=== PATIENT | female | born 1930 | race American Indian/Alaskan Native ===

== ENCOUNTER 2021-04-12 13:33 | Emergency (ER) | payer MEDICARE ==
[2021-04-12] MEDS ORDERED: methylPREDNISolone Sod Succinate 125 MG/2 ML INJ IV ONE (14:29)
[2021-04-12] MEDS ORDERED: FAMOTIDINE 20 MG/2 ML INJ IV ONE (14:29)
[2021-04-12] MEDS ORDERED: diphenhydrAMINE 50 MG/ML VIAL IV ONE (14:29)
[2021-04-12] MEDS ORDERED: SODIUM CHLORIDE 0.9% 1000 ML IV SOLN IV ONE (14:37)
--- NOTE | 2021-04-12 15:21 | XRay Report ---
CHEST 1 VIEW 04/12/2021 2:41 PM INDICATION / CLINICAL INFORMATION: hypotension, hypoxia. COMPARISON: None available. FINDINGS: SUPPORT DEVICES: None. HEART / MEDIASTINUM: Atherosclerotic calcifications are noted in the aortic arch. There is prominence of the right hilum. LUNGS / PLEURA: There are bilateral pulmonary opacities. There is diffuse brain all opacity in the ri ght lung some focal peripheral opacity in the left upper lung zone in the left lung base. No pneumoth orax. There is a 4 mm nodular density in the left lung base. ADDITIONAL FINDINGS: No significant additional findings. IMPRESSION: 1. There are bilateral pulmonary opacities which could represent pneumonia or asymmetric edema. Short -term follow-up radiographs are recommended to ensure clearing. 2. There is some right hilar prominence could represent which could be vascular or represent some per ihilar airspace consolidation. The possibility of hilar adenopathy or right hilar mass is included in the differential. Short-term follow-up chest radiograph with PA and lateral imaging is recommended i n the next 1-2 weeks to evaluate for clearing. CT imaging can be obtained to further evaluate if this persists. Signer Name: Leonid Bosch MD Signed: 04/12/2021 3:17 PM Workstation Name: [id number]
[2021-04-12 15:22] LABS: Basophils % (Auto) 0.3 % (0.0-1.8); Hematocrit 47.2 % (30.3-42.9); Lymphocytes # (Auto) 0.8 K/mm3 (1.2-5.4); Lymphocytes % (Auto) 7.7 % (13.4-35.0); Mean Corpuscular HGB Conc 32 % (30-34); Mean Corpuscular Volume 97 fl (79-97); Monocytes # (Auto) 0.6 K/mm3 (0.0-0.8); Monocytes % (Auto) 5.4 % (0.0-7.3); Platelet Count 228 K/mm3 (140-440); Red Blood Count 4.89 M/mm3 (3.65-5.03); Red Cell Distribution Width 15.7 % (13.2-15.2)
--- NOTE | 2021-04-12 15:26 | Emergency Department Report ---
ED Shortness of Breath HPI - General Chief Complaint: Abdominal Pain Stated Complaint: ABD PAIN Time Seen by Provider: 04/12/21 14:19 Source: patient, family (son via telephone), EMS Mode of arrival: Stretcher Limitations: No Limitations - History of Present Illness Initial Comments: Please note history of present illness obtained mostly from patient's son with whom she resides. Patient is alert and oriented x3 but is weak, short of breath, slow to respond to questions 89-year-old female with a past medical history of CHF, hypothyroidism currently on Synthroid, hypertension who chronically takes Synthroid Plavix, eyedrops, and a water pill presents to the hospital with complaint worsening weakness. As per son he states that patient has had generalized weakness for the last several days with decreased p.o. intake. Today while using the bathroom she had a syncopal episode for approximately 30 to 45 seconds and responded after he put a cool rag on her face and neck. Patient's blood pressure was 77/59 at the time. he called the primary care doctor who told him to come to the office at 1:30 PM. Patient had just a small amount to eat and while attempting to get dressed for doctor's appointment had a second syncopal episode lasting for approximately 1 minute. Is at that time that son decided to call EMS. He states that patient was complaining of some abdominal pain earlier but patient denies down pain at this time. She does endorse shortness of breath. No complaints of cough, fever. She is vaccinated for Covid. At baseline patient ambulates with a walker. Previous history of cholecystectomy and possible spleen surgery as per son - Related Data Allergies Allergy/AdvReac Type Severity Reaction Status Date / Time aspirin AdvReac Unknown Verified 04/12/21 13:37 ED Review of Systems ROS: Stated complaint: ABD PAIN Other details as noted in HPI Comment: All other systems reviewed and negative ED Physical Exam - General Limitations: No Limitations - Other Other exam information: General: No acute distress Head: Atraumatic Eyes: normal appearance ENT: Moist mucous membranes Neck: Normal appearance, no midline tenderness Chest: Mild crackles, mild tachypnea satting 93% on 4 L nasal CV: Regular rate and rhythm Abdomen: Soft, normal bowel sounds, nontender, nondistended, no rebound or guarding Back: Normal inspection Extremity: Normal inspection, full range of motion Neuro: Alert O x 3, no facial asymmetry, speech clear, no gross motor sensory deficit Psych: Appropriate behavior Skin: No rash ED Course Vital Signs 04/12/21 04/12/21 04/12/21 13:37 15:26 16:43 Temperature 98 F 98.1 F Pulse Rate 88 78 73 Respiratory 18 18 94 H Rate Blood Pressure Blood Pressure 86/32 76/44 75/52 [Left] O2 Sat by Pulse 100 92 94 Oximetry 04/12/21 04/12/21 16:59 21:22 Temperature Pulse Rate 76 64 Respiratory Rate Blood Pressure 81/49 Blood Pressure 99/54 [Left] O2 Sat by Pulse 90 Oximetry - Reevaluation(s) Reevaluation #1: 04/12/21 20:03 pt is now confused. 04/12/21 20:09 son updated regarding pt status and need for Central line, permission granted to place central line. - Central Line Placement Right Femoral Consent Obtained: verbal consent (FROM SON), emergent situation Time Out Performed: Yes Patient Placed on Monitor/Pulse Ox: Yes MD Prep: mask, gown, gloves Central Line Prep: Chlorhexidine scrub, sterile drapes applied Ultrasound Used for Placement: No Central Line Lumen Inserted: triple Reason for Insertion: Volume Resuscitation Bloods Obtained for Lab: Yes Central Line Position: good blood return, sutured in place with nyl Dressing Applied: Tegaderm Patient Tolerated Procedure: well, no complications - Intubation Time Out Performed: Yes Sedative: Etomidate Mg Given: 20 Paralytic: Succinylcholine Mg Given: 100 Laryngoscope: fiberoptic video scope Size: 4 ET Tube Size: 7.5 Tube Secured Depth (cm): 22 Tube Secured Location: lips Tube Placement Confirmation: visualized tube passing t, equal breath sounds bilat, no breath sounds over epi, confirmation by capnometr Patient Tolerated Procedure: well, no complications Intubation Complications: none ED Medical Decision Making - Lab Data Result diagrams: 04/12/21 14:54 04/12/21 15:55 Lab Results 04/12/21 04/12/21 04/12/21 Range/Units 14:54 14:54 14:54 WBC 10.9 (4.5-11.0) K/mm3 RBC 4.89 (3.65-5.03) M/mm3 Hgb 15.0 H (10.1-14.3) gm/dl Hct 47.2 H (30.3-42.9) % MCV 97 (79-97) fl MCH 31 (28-32) pg MCHC 32 (30-34) % RDW 15.7 H (13.2-15.2) % Plt Count 228 (140-440) K/mm3 Lymph % (Auto) 7.7 L (13.4-35.0) % [place] % (Auto) 5.4 (0.0-7.3) % Eos % (Auto) 0.0 (0.0-4.3) % Baso % (Auto) 0.3 (0.0-1.8) % Lymph # (Auto) 0.8 L (1.2-5.4) K/mm3 [place] # (Auto) 0.6 (0.0-0.8) K/mm3 Eos # (Auto) 0.0 (0.0-0.4) K/mm3 Baso # (Auto) 0.0 (0.0-0.1) K/mm3 Seg Neutrophils % 86.6 H (40.0-70.0) % Seg Neutrophils # 9.4 H (1.8-7.7) K/mm3 PT (12.2-14.9) Sec. INR (0.87-1.13) APTT 29.0 (24.2-36.6) Sec. D-Dimer (0-234) ng/mlDDU Sodium 139 (137-145) mmol/L Potassium 4.3 (3.6-5.0) mmol/L Chloride 105.7 (98-107) mmol/L Carbon Dioxide 22 (22-30) mmol/L Anion Gap 16 mmol/L BUN 26 H (7-17) mg/dL Creatinine 1.9 H (0.6-1.2) mg/dL Estimated GFR 25 ml/min BUN/Creatinine Ratio 14 % Glucose 147 H (65-100) mg/dL POC Glucose (70-105) mg/dL Lactic Acid (0.7-2.0) mmol/L Calcium 8.2 L (8.4-10.2) mg/dL Ferritin (10.0-200.0) ng/mL Total Bilirubin 0.30 (0.1-1.2) mg/dL AST 169 H (5-40) units/L ALT 133 H (7-56) units/L Alkaline Phosphatase 96 (35-129) units/L Lactate Dehydrogenase (91-180) units/L Troponin T 0.052 H (0.00-0.029) ng/mL C-Reactive Protein (0.00-1.30) mg/dL NT-Pro-B Natriuret Pep (0-900) pg/mL Total Protein 6.0 L (6.3-8.2) g/dL Albumin 3.2 L (3.9-5) g/dL Albumin/Globulin Ratio 1.1 % Triglycerides 75 (2-149) mg/dL Cholesterol 132 (50-199) mg/dL LDL Cholesterol Direct 75 (50-130) mg/dL HDL Cholesterol 45 (40-59) mg/dL Cholesterol/HDL Ratio 2.93 % Procalcitonin (<0.15) ng/mL TSH (0.270-4.200) mlU/mL Free T4 (0.76-1.46) ng/dL 04/12/21 04/12/21 04/12/21 Range/Units 14:54 14:54 15:55 WBC (4.5-11.0) K/mm3 RBC (3.65-5.03) M/mm3 Hgb (10.1-14.3) gm/dl Hct (30.3-42.9) % MCV (79-97) fl MCH (28-32) pg MCHC (30-34) % RDW (13.2-15.2) % Plt Count (140-440) K/mm3 Lymph % (Auto) (13.4-35.0) % [place] % (Auto) (0.0-7.3) % Eos % (Auto) (0.0-4.3) % Baso % (Auto) (0.0-1.8) % Lymph # (Auto) (1.2-5.4) K/mm3 [place] # (Auto) (0.0-0.8) K/mm3 Eos # (Auto) (0.0-0.4) K/mm3 Baso # (Auto) (0.0-0.1) K/mm3 Seg Neutrophils % (40.0-70.0) % Seg Neutrophils # (1.8-7.7) K/mm3 PT 15.9 H (12.2-14.9) Sec. INR 1.15 H (0.87-1.13) APTT (24.2-36.6) Sec. D-Dimer 5872.10 H (0-234) ng/mlDDU Sodium (137-145) mmol/L Potassium (3.6-5.0) mmol/L Chloride (98-107) mmol/L Carbon Dioxide (22-30) mmol/L Anion Gap mmol/L BUN (7-17) mg/dL Creatinine (0.6-1.2) mg/dL Estimated GFR ml/min BUN/Creatinine Ratio % Glucose (65-100) mg/dL POC Glucose (70-105) mg/dL Lactic Acid 2.20 H* (0.7-2.0) mmol/L Calcium (8.4-10.2) mg/dL Ferritin (10.0-200.0) ng/mL Total Bilirubin (0.1-1.2) mg/dL AST (5-40) units/L ALT (7-56) units/L Alkaline Phosphatase (35-129) units/L Lactate Dehydrogenase (91-180) units/L Troponin T (0.00-0.029) ng/mL C-Reactive Protein (0.00-1.30) mg/dL NT-Pro-B Natriuret Pep 23187 H (0-900) pg/mL Total Protein (6.3-8.2) g/dL Albumin (3.9-5) g/dL Albumin/Globulin Ratio % Triglycerides (2-149) mg/dL Cholesterol (50-199) mg/dL LDL Cholesterol Direct (50-130) mg/dL HDL Cholesterol (40-59) mg/dL Cholesterol/HDL Ratio % Procalcitonin (<0.15) ng/mL TSH (0.270-4.200) mlU/mL Free T4 (0.76-1.46) ng/dL 04/12/21 04/12/21 04/12/21 Range/Units 15:55 15:55 15:55 WBC (4.5-11.0) K/mm3 RBC (3.65-5.03) M/mm3 Hgb (10.1-14.3) gm/dl Hct (30.3-42.9) % MCV (79-97) fl MCH (28-32) pg MCHC (30-34) % RDW (13.2-15.2) % Plt Count (140-440) K/mm3 Lymph % (Auto) (13.4-35.0) % [place] % (Auto) (0.0-7.3) % Eos % (Auto) (0.0-4.3) % Baso % (Auto) (0.0-1.8) % Lymph # (Auto) (1.2-5.4) K/mm3 [place] # (Auto) (0.0-0.8) K/mm3 Eos # (Auto) (0.0-0.4) K/mm3 Baso # (Auto) (0.0-0.1) K/mm3 Seg Neutrophils % (40.0-70.0) % Seg Neutrophils # (1.8-7.7) K/mm3 PT (12.2-14.9) Sec. INR (0.87-1.13) APTT (24.2-36.6) Sec. D-Dimer (0-234) ng/mlDDU Sodium (137-145) mmol/L Potassium (3.6-5.0) mmol/L Chloride (98-107) mmol/L Carbon Dioxide (22-30) mmol/L Anion Gap mmol/L BUN (7-17) mg/dL Creatinine (0.6-1.2) mg/dL Estimated GFR ml/min BUN/Creatinine Ratio % Glucose 140 H (65-100) mg/dL POC Glucose (70-105) mg/dL Lactic Acid (0.7-2.0) mmol/L Calcium (8.4-10.2) mg/dL Ferritin 1081.0 H (10.0-200.0) ng/mL Total Bilirubin (0.1-1.2) mg/dL AST (5-40) units/L ALT (7-56) units/L Alkaline Phosphatase (35-129) units/L Lactate Dehydrogenase 480 H (91-180) units/L Troponin T (0.00-0.029) ng/mL C-Reactive Protein 4.50 H (0.00-1.30) mg/dL NT-Pro-B Natriuret Pep (0-900) pg/mL Total Protein (6.3-8.2) g/dL Albumin (3.9-5) g/dL Albumin/Globulin Ratio % Triglycerides (2-149) mg/dL Cholesterol (50-199) mg/dL LDL Cholesterol Direct (50-130) mg/dL HDL Cholesterol (40-59) mg/dL Cholesterol/HDL Ratio % Procalcitonin 0.25 (<0.15) ng/mL TSH 0.311 (0.270-4.200) mlU/mL Free T4 1.02 (0.76-1.46) ng/dL 04/12/21 04/12/21 Range/Units 18:01 20:59 WBC (4.5-11.0) K/mm3 RBC (3.65-5.03) M/mm3 Hgb (10.1-14.3) gm/dl Hct (30.3-42.9) % MCV (79-97) fl MCH (28-32) pg MCHC (30-34) % RDW (13.2-15.2) % Plt Count (140-440) K/mm3 Lymph % (Auto) (13.4-35.0) % [place] % (Auto) (0.0-7.3) % Eos % (Auto) (0.0-4.3) % Baso % (Auto) (0.0-1.8) % Lymph # (Auto) (1.2-5.4) K/mm3 [place] # (Auto) (0.0-0.8) K/mm3 Eos # (Auto) (0.0-0.4) K/mm3 Baso # (Auto) (0.0-0.1) K/mm3 Seg Neutrophils % (40.0-70.0) % Seg Neutrophils # (1.8-7.7) K/mm3 PT (12.2-14.9) Sec. INR (0.87-1.13) APTT (24.2-36.6) Sec. D-Dimer (0-234) ng/mlDDU Sodium (137-145) mmol/L Potassium (3.6-5.0) mmol/L Chloride (98-107) mmol/L Carbon Dioxide (22-30) mmol/L Anion Gap mmol/L BUN (7-17) mg/dL Creatinine (0.6-1.2) mg/dL Estimated GFR ml/min BUN/Creatinine Ratio % Glucose (65-100) mg/dL POC Glucose 123 H (70-105) mg/dL Lactic Acid 4.60 H* (0.7-2.0) mmol/L Calcium (8.4-10.2) mg/dL Ferritin (10.0-200.0) ng/mL Total Bilirubin (0.1-1.2) mg/dL AST (5-40) units/L ALT (7-56) units/L Alkaline Phosphatase (35-129) units/L Lactate Dehydrogenase (91-180) units/L Troponin T (0.00-0.029) ng/mL C-Reactive Protein (0.00-1.30) mg/dL NT-Pro-B Natriuret Pep (0-900) pg/mL Total Protein (6.3-8.2) g/dL Albumin (3.9-5) g/dL Albumin/Globulin Ratio % Triglycerides (2-149) mg/dL Cholesterol (50-199) mg/dL LDL Cholesterol Direct (50-130) mg/dL HDL Cholesterol (40-59) mg/dL Cholesterol/HDL Ratio % Procalcitonin (<0.15) ng/mL TSH (0.270-4.200) mlU/mL Free T4 (0.76-1.46) ng/dL - EKG Data -: EKG Interpreted by Me (sirena) EKG shows normal: sinus rhythm, ST-T waves (NO STEMI) Rate: normal (89) - Radiology Data Radiology results: report reviewed CHEST 1 VIEW 04/12/2021 2:41 PM INDICATION / CLINICAL INFORMATION: hypotension, hypoxia. COMPARISON: None available. FINDINGS: SUPPORT DEVICES: None. HEART / MEDIASTINUM: Atherosclerotic calcifications are noted in the aortic arch. There is prominence of the right hilum. LUNGS / PLEURA: There are bilateral pulmonary opacities. There is diffuse brain all opacity in the right lung some focal peripheral opacity in the left upper lung zone in the left lung base. No pneumothorax. There is a 4 mm nodular density in the left lung base. ADDITIONAL FINDINGS: No significant additional findings. IMPRESSION: 1. There are bilateral pulmonary opacities which could represent pneumonia or asymmetric edema. Short-term follow-up radiographs are recommended to ensure clearing. 2. There is some right hilar prominence could represent which could be vascular or represent some perihilar airspace consolidation. The possibility of hilar adenopathy or right hilar mass is included in the differential. Short-term follow-up chest radiograph with PA and lateral imaging is recommended in the next 1-2 weeks to evaluate for clearing. CT imaging can be obtained to further evaluate if this persists. CT abdomen pelvis demonstrates diffuse multilevel degenerative disc disease throughout the thoracic spine and lumbar spine, but no acute osseous abnormality. Con, CT chest wo con INDICATION / CLINICAL INFORMATION: syncope, sob, abd pain. TECHNIQUE: Axial CT imaging of chest, abdomen and pelvis was obtained without contrast. Coronal and sagittal reformatted imaging obtained and reviewed. All CT scans at this location are performed using CT dose reduction for ALARA by means of automated exposure control. COMPARISON: Chest radiograph earlier today FINDINGS: CT chest: There is a 4 cm solid mass projecting throughout the right thyroid lobe. The left thyroid lobe is unremarkable. For noncontrast exam, I do not see an obvious mediastinal or hilar mass. Thoracic aorta is of normal caliber. Heart size is mildly enlarged. There is dense coronary artery calcification. Groundglass opacities are present throughout both lungs but is unclear if this is chronic or acute. Correlation with Covid status is recommended. No focal area of significant consolidation is present. No pleural effusion. CT ABDOMEN: For noncontrast exam, the liver, spleen, pancreas, and kidneys appear grossly unremarkable. Small left renal simple cyst is noted. Common duct is dilated into the pancreatic head. Source of the dilatation is not identified. Small amount of fluid is seen tracking from the liver tip into the posterior pararenal space. This is of doubtful clinical significance Calcific plaque is seen throughout the abdominal aorta. There is mild ectasia of the distal abdominal aorta with maximum transverse diameter of approximately 2.[address] PELVIS: No pelvic mass, free fluid, or focal inflammatory changes noted within the pelvis. GI tract is grossly unremarkable. A normal appendix is present in the right lower quadrant. Review of osseous structures IMPRESSION: 1. Prominent dilatation of the common bile duct in this postcholecystectomy patient. Biliary dilatation seems excessive even for a postcholecystectomy patient. Correlation with liver enzymes/b ilirubin is recommended. Etiology for biliary dilatation is not identified on this noncontrast exam. 2. No other significant acute finding within the abdomen or pelvis. 3. Chronic appearing groundglass opacities throughout both lungs. Since I do not have prior imaging for comparison I am unclear whether this is all chronic or possibly acute. I would favor that findings are chronic interstitial lung disease but correlation with Covid status is recommended. 4. There is a 4 cm solid mass within the right lobe of the thyroid gland. Given the size and lack of any prior imaging, thyroid ultrasound is recommended when the patient is clinically able, to exclude thyroid neoplasm. CT head/brain wo con INDICATION: syncope, sob, abd pain. TECHNIQUE: Routine CT head. All CT scans at this location are performed using CT dose reduction for ALARA by means of automated exposure control. COMPARISON: None. FINDINGS: Intracranial: Tatum-white matter differentiation is maintained. No intracranial hemorrhage. No extra axial collection. No hydrocephalus. No herniation. Sinuses: Paranasal sinuses and mastoid air cells are essentially clear. Orbits: Globes are intact. Calvarium: No acute fracture. IMPRESSION: 1. No acute intracranial abnormality. - Medical Decision Making 89-year-old female presents to the hospital with hypoxia, hypotension, and recurrent syncope. Patient received a 30 mill per KG bolus of normal saline in the ED without significant improvement in blood pressure. I went to reassess patient and found her confused use and diaphoretic. I discussed this with the son and informed him that we will place a central line and intubate the patient. Patient was intubated and central line placed without difficulty. Patient had a very organized rhythm on the monitor after central line placement however began to have bradycardia. Patient was treated for pain, dopamine initiated however, patient subsequently lost her pulse. CPR initiated. We started coding patient initially at 20:54. Patient was resuscitated several times for PEA arrest with momentary return of pulse. Both dopamine and Levophed were maxed out. I was able to bring son to the bedside after resuscitation efforts however, patient devel oped PEA arrest again and time of 21:31. Please refer to code sheet for details regarding resuscitation efforts. Accu-Chek was normal range. Patient was being treated for hypoxia with possible pneumonia with Covid test pending Critical Care Time: Yes Critical care time in (mins) excluding proc time.: 80 Critical care attestation.: If time is entered above; I have spent that time in minutes in the direct care of this critically ill patient, excluding procedure time. Critical Care Time: 80 Minutes of critical care time excluding procedures were used in the care of the patient. I discussed treatment plan with the nursing team members. I reviewed electronic record. I spoke with family to obtain medical history and provide several updates regarding patient's medical condition. Patient required multiple interventions and reassessments. ED Disposition Clinical Impression: Pneumonia, Hypoxia, Septic shock, Cardiopulmonary arrest, Renal insufficiency Disposition: 20 Is pt being admited?: No Condition: Critical Instructions: Abdominal Pain (ED), Bacterial Pneumonia (ED) Time of Disposition: 22:00
[2021-04-12] MEDS ORDERED: cefTRIAXone/NS 2 GM/100 ML 2 GM/100 ML BAG IV ONE (15:27)
[2021-04-12] MEDS ORDERED: AZITHROMYCIN/NS 500 MG/250 ML 500 MG/250 ML BAG IV ONE (15:27)
[2021-04-12 15:30] LABS: Albumin 3.2 g/dL (3.9-5); Calcium 8.2 mg/dL (8.4-10.2)
[2021-04-12 15:41] LABS: Chol/HDL Ratio 2.93 %
[2021-04-12 16:31] LABS: INR 1.15 (0.87-1.13)
--- NOTE | 2021-04-12 16:37 | Cat Scan Report ---
CT head/brain wo con INDICATION: syncope, sob, abd pain. TECHNIQUE: Routine CT head. All CT scans at this location are performed using CT dose reduction for A JUAREZ by means of automated exposure control. COMPARISON: None. FINDINGS: Intracranial: Tatum-white matter differentiation is maintained. No intracranial hemorrhage. No extra a xial collection. No hydrocephalus. No herniation. Sinuses: Paranasal sinuses and mastoid air cells are essentially clear. Orbits: Globes are intact. Calvarium: No acute fracture. IMPRESSION: 1. No acute intracranial abnormality. Signer Name: Sung Jacobson MD Signed: 04/12/2021 4:32 PM Workstation Name: [id number]
[2021-04-12 16:55] LABS: C-Reactive Protein 4.5 mg/dL (0.00-1.30)
--- NOTE | 2021-04-12 16:57 | Cat Scan Report ---
CT abdomen pelvis demonstrates diffuse multilevel degenerative disc disease throughout the thoracic s pine and lumbar spine, but no acute osseous abnormality. Con, CT chest wo con INDICATION / CLINICAL INFORMATION: syncope, sob, abd pain. TECHNIQUE: Axial CT imaging of chest, abdomen and pelvis was obtained without contrast. Coronal and sagittal ref ormatted imaging obtained and reviewed. All CT scans at this location are performed using CT dose re duction for ALARA by means of automated exposure control. COMPARISON: Chest radiograph earlier today FINDINGS: CT chest: There is a 4 cm solid mass projecting throughout the right thyroid lobe. The left thyroid l obe is unremarkable. For noncontrast exam, I do not see an obvious mediastinal or hilar mass. Thoracic aorta is of normal caliber. Heart size is mildly enlarged. There is dense coronary artery calcification. Groundglass opacities are present throughout both lungs but is unclear if this is chronic or acute. C orrelation with Covid status is recommended. No focal area of significant consolidation is present. N o pleural effusion. CT ABDOMEN: For noncontrast exam, the liver, spleen, pancreas, and kidneys appear grossly unremarkabl e. Small left renal simple cyst is noted. Common duct is dilated into the pancreatic head. Source of the dilatation is not identified. Small amount of fluid is seen tracking from the liver tip into the posterior pararenal space. This is of doubtful clinical significance Calcific plaque is seen throughout the abdominal aorta. There is mild ectasia of the distal abdominal aorta with maximum transverse diameter of approximately 2.[address] PELVIS: No pelvic mass, free fluid, or focal inflammatory changes noted within the pelvis. GI trac t is grossly unremarkable. A normal appendix is present in the right lower quadrant. Review of osseous structures IMPRESSION: 1. Prominent dilatation of the common bile duct in this postcholecystectomy patient. Biliary dilatati on seems excessive even for a postcholecystectomy patient. Correlation with liver enzymes/bilirubin i s recommended. Etiology for biliary dilatation is not identified on this noncontrast exam. 2. No other significant acute finding within the abdomen or pelvis. 3. Chronic appearing groundglass opacities throughout both lungs. Since I do not have prior imaging f or comparison I am unclear whether this is all chronic or possibly acute. I would favor that findings are chronic interstitial lung disease but correlation with Covid status is recommended. 4. There is a 4 cm solid mass within the right lobe of the thyroid gland. Given the size and lack of any prior imaging, thyroid ultrasound is recommended when the patient is clinically able, to exclude thyroid neoplasm. Signer Name: Lyn Alcantar MD Signed: 04/12/2021 4:52 PM Workstation Name: [id number]
[2021-04-12 17:56] LABS: Free T4 (Free Thyroxine) 1.02 ng/dL (0.76-1.46)
[2021-04-12] MEDS ORDERED: dexAMETHasone 4 MG/ML VIAL IV ONE (19:14)
[2021-04-12] MEDS ORDERED: ETOMIDATE 20 MG/10 ML INJ IV ONE (20:24)
[2021-04-12] MEDS ORDERED: SUCCINYLCHOLINE CHLORIDE 200 MG/10 ML INJ MDV ONE (20:24)
[2021-04-12] MEDS ORDERED: DOPamine 800 MG/D5W 250ML 800 MG/250 ML BAG IV ONE (20:33)
[2021-04-12] MEDS ORDERED: ATROPINE 0.1% (1 MG/10 ML) CARDIAC SYRINGE ONE (20:42)
[2021-04-12] MEDS ORDERED: NORepinephrine/NS 8 MG-250 ML 8 MG/250 ML INFUS..BTL IV ONE (20:47)
[2021-04-12 21:27] VITALS: BP 81/49
--- NOTE | 2021-04-13 09:59 | Electrocardiograph Report ---
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
[2021-04-13] MEDS ORDERED: EPINEPHrine 1 MG/10 ML SYRINGE ONE (15:02)
[2021-04-13] MEDS ORDERED: SODIUM BICARB 8.4% 50 MEQ/50 ML SYRINGE IV ONE (15:02)
== END 2021-04-12 23:13 ==
LOC: ED 13:33
DX: I46.9 Cardiac arrest, cause unspecified (principal); A41.9 Sepsis, unspecified organism; J18.9 Pneumonia, unspecified organism; R09.02 Hypoxemia; R65.21 Severe sepsis with septic shock; N18.9 Chronic kidney disease, unspecified; I50.9 Heart failure, unspecified
CPT/HCPCS: 31500; 36415; 36556; 70450; 71045; 71250; 74176; 80053; 80061; 82140; 82728; 82947; 82962; 83615; 83880; 84145; 84439; 84443; 84484; 85025; 85379; 85610; 85730; 86140; 87040; 92950; 93005; 93010; 96361; 96365; 99291; 99292; J0330; J0456; J0461; J0696; J1265; J2354; J3490; J7030; 94002; Q0162; J0171